=== PATIENT | male | born 1995 | race African-American/Black ===

== ENCOUNTER 2017-06-26 21:33 | Emergency (ER) | payer MEDICAID ==
[~2017-06-26] VITALS: Ht 172.7 cm; Wt 74.8 kg
[~2017-06-26 21:33] MED LIST: IBUPROFEN400 MG PO; IBUPROFEN600 MG PO
[2017-06-26 22:00] VITALS: BP 122/68
[2017-06-26] MEDS ORDERED: HYDROCODON-ACE1 EA15 ORAL (22:25)
[2017-06-26] MEDS ORDERED: POLYTRIM OP SOL10 ML OPHTHALM (22:25)
--- NOTE | 2017-06-26 22:26 | Emergency Room Report ---
History of Present Illness General Chief Complaint: Eye Problems Source: Patient Present Illness HPI This is a 21-year-old male with history of pilonidal abscess with fistula formation. He had colorectal surgery done last week. He see her for chief complaint of wound check and also left eye stye. Denies any fever or chills. Out of his pain medication. No nausea no vomiting. Still having drainage. Scheduled for followup next week. Allergies: Coded Allergies: No Known Allergies (Unverified , 11/23/12) Patient History Past Medical History: see triage record, old chart reviewed Past Surgical History: other Pertinent Family History: none Social History: Denies: smoking Immunizations: other Reviewed Nursing Documentation: PMH: Agreed, PSxH: Agreed Nursing Documentation-PMH Past Medical History: No Stated History Review of Systems Eye: Denies: blurred vision, eye pain ENT: Denies: ear pain, nose congestion, throat swelling Respiratory: Denies: cough, shortness of breath Cardiovascular: Denies: chest pain, palpitations Gastrointestinal: Denies: abdominal pain, diarrhea, nausea, vomiting Musculoskeletal: Denies: back pain, joint pain Skin: Denies: rash Neurological: Denies: headache, numbness Endocrine: Denies: increased thirst, increased urine Hematologic/Lymphatic: Denies: easy bruising All Other Systems: negative except mentioned in HPI Physical Exam Vital Signs Date Time Temp Pulse Resp B/P Pulse Ox O2 Delivery O2 Flow Rate FiO2 06/26/17 21:42 98.8 96 18 119/65 98 Room Air vitals normal Sp02 EP Interpretation: reviewed, normal General Appearance: well appearing, no apparent distress, alert Head: normocephalic, atraumatic Eyes: left eye other - stye upper lid. no drainage., bilateral eye EOMI, bilateral eye PERRL ENT: hearing grossly normal, normal pharynx Neck: full range of motion, supple, no meningismus Respiratory: chest non-tender, lungs clear, normal breath sounds Cardiovascular #1: regular rate, rhythm, no murmur Gastrointestinal: normal bowel sounds, non tender, no mass, no organomegaly, no bruit, non-distended Genitourinary: other - surgical site with purulent drainage but good pink tissue. Musculoskeletal: back normal, gait/station normal, normal range of motion Psychiatric: mood/affect normal Skin: warm/dry Medical Decision Making Diagnostic Impression: Primary Impression: Stye external Qualified Codes: H00.014 - Hordeolum externum left upper eyelid Additional Impression: Wound check, abscess ER Course Patient was at [facility]. No evidence of cellulitis. His wound looks well. Still draining but surgeon told him that it will continue to drain. We'll discharge home. I Change his dressing. Last Vital Signs Date Time Temp Pulse Resp B/P Pulse Ox O2 Delivery O2 Flow Rate FiO2 06/26/17 21:42 98.8 96 18 119/65 98 Room Air Status: improved Disposition: HOME, SELF-CARE Condition: Stable Scripts Polymyxin/Trimethoprim (Polytrim Eye Drops) 10 Ml Drops 2 DROP OPHTHALM THREE TIMES A DAY, #1 EA Instill in affected eye for 7 days Prov: TIM MCGUIRE M.D. 06/26/17 Hydrocodone/Acetaminophen 5-325* (HYDROCODONE/ACETAMINOPHEN 5-325*) 1 Each Tablet 1 TAB ORAL Q6H Y for For Pain, #30 TAB 0 Refills Prov: TIM MCGUIRE M.D. 06/26/17 Additional Instructions: Followup with your surgeon as scheduled. Return for increasing pain or any concern. TMI MCGUIRE M.D. Jun 26, 2017 22:26
[2017-06-26 22:30] VITALS: BP 128/70
[2017-06-26] MEDS ORDERED: Norco 5mg/325mg tab ORAL ONE (22:30)
[2017-06-26 22:40] VITALS: BP 128/70
== END 2017-06-26 22:40 | disposition home or self-care (01) ==
LOC: EMR 21:55
DX: H00.014 Hordeolum externum left upper eyelid (principal); T81.4XXA Infection following a procedure, initial encounter; L02.818 Cutaneous abscess of other sites
CPT/HCPCS: 99284